=== PATIENT | male | born 1965 | race Hispanic/Latino ===

== ENCOUNTER 2021-06-27 00:16 | Emergency (ER) | payer SELFPAY ==
[2021-06-27] MEDS ORDERED: IBUPROFEN 400 MG TAB PO ONE (06:59)
[2021-06-27] MEDS ORDERED: ACETAMINOPHEN 325 MG TAB PO ONE (06:59)
[2021-06-27] MEDS ORDERED: DOXYCYCLINE 100 MG CAP PO ONE (06:59)
[2021-06-27] MEDS ORDERED: CLINDAMYCIN 300 MG CAP PO ONE (06:59)
--- NOTE | 2021-06-27 07:04 | Emergency Department Report ---
ED General Adult HPI - General Chief complaint: Extremity Problem,Nontraumatic Stated complaint: RT LEG INSECT BITE PUI?: No Time Seen by Provider: 06/27/21 06:59 Source: patient, RN notes reviewed, old records reviewed Mode of arrival: Ambulatory Limitations: No Limitations - History of Present Illness Initial comments: The patient was evaluated in the emergency department for symptoms described in the history of present illness. He/she was evaluated in the context of the global COVID-19 pandemic, which necessitated consideration that the patient might be at risk for infection with the virus that causes COVID-19. Institutional protocols and algorithms that pertain to the evaluation of patients at risk for COVID-19 are in a state of rapid change based on information released by regulatory bodies including the CDC and federal and state organizations. These policies and algorithms were followed during the patient's care in the emergency department. Please note that these policies, procedures and recommendations changed on a rapid basis. Patient is a 55-year-old gentleman, who denies significant past medical history. He is not known to myself. He presents to the ER today with complaint of nontraumatic right lower extremity redness and pain, after insect bite a few days ago. He thinks he was bit by a tick, but he is not certain. He was seen at [facility] a few days ago, reports that he was given an IV, but does not know if he received IV antibiotics, and has paperwork that indicates that he was discharged with prescriptions for Toradol and doxycycline. However, he reports that he does not have his prescriptions, and he has not taken antibiotics. He currently denies headache, neck pain, chest pain, abdominal pain, shortness of breath, vomiting diarrhea. He does endorse some body aches, and he does endorse loss of taste and smell. His pain is throbbing, and increases with palpation and decreases with rest. -: Gradual, days(s) Location: right, lower extremity Quality: aching Consistency: constant Improves with: rest Worsens with: movement - Related Data Previous Rx's Medication Instructions Recorded Last Taken Type Clindamycin [Clindamycin CAP] 300 mg PO Q6H 10 Days #39 capsule 06/27/21 Unknown Rx Doxycycline Hyclate 100 mg PO BID 10 Days #19 tablet. 06/27/21 Unknown Rx Allergies Allergy/AdvReac Type Severity Reaction Status Date / Time No Known Allergies Allergy Unverified 06/27/21 01:35 ED Review of Systems ROS: Stated complaint: RT LEG INSECT BITE Other details as noted in HPI Constitutional: denies: fever Eyes: denies: eye discharge ENT: denies: epistaxis Respiratory: denies: cough Cardiovascular: denies: chest pain Gastrointestinal: denies: abdominal pain Musculoskeletal: myalgia Skin: rash, lesions Neurological: denies: weakness Hematological/Lymphatic: denies: easy bleeding ED Past Medical Hx - Past Medical History Previous Medical History?: No - Surgical History Past Surgical History?: No - Medications Home Medications: Home Medications Medication Instructions Recorded Confirmed Last Taken Type Clindamycin [Clindamycin CAP] 300 mg PO Q6H 10 Days #39 capsule 06/27/21 Unknown Rx Doxycycline Hyclate 100 mg PO BID 10 Days #19 tablet. 06/27/21 Unknown Rx ED Physical Exam - General Limitations: No Limitations General appearance: alert, in no apparent distress - Head Head exam: Present: atraumatic, normocephalic - Eye Eye exam: Present: normal appearance, EOMI. Absent: nystagmus - ENT ENT exam: Present: normal exam, normal orophraynx, mucous membranes moist, normal external ear exam - Neck Neck exam: Present: normal inspection, full ROM. Absent: tenderness, meningismus - Respiratory Respiratory exam: Present: normal lung sounds bilaterally. Absent: respiratory distress, wheezes, rales, rhonchi, stridor, decreased breath sounds - Cardiovascular Cardiovascular Exam: Present: regular rate, normal rhythm, normal heart sounds. Absent: bradycardia, tachycardia, irregular rhythm, systolic murmur, diastolic murmur, rubs, gallop - GI/Abdominal GI/Abdominal exam: Present: soft. Absent: distended, tenderness, guarding, rebound, rigid, pulsatile mass - Rectal Rectal exam: Present: deferred - Extremities Exam Extremities exam: Present: full ROM, other (2+ pulses noted in the bilateral upper and lower extremities. There is no palpable cord. negative Homans sign. Muscular compartments are soft. The pelvis is stable.). Absent: normal inspection (On the right distal anterior lower extremity, there is erythema, warmth and tenderness. The muscular compartments are soft. There is no palpable cord. Erythema is approximately 12 cm on the anterior distal tibial region.), calf tenderness - Back Exam Back exam: Present: normal inspection. Absent: tenderness, CVA tenderness (R), CVA tenderness (L), paraspinal tenderness, vertebral tenderness - Neurological Exam Neurological exam: Present: alert, oriented X3, normal gait, other (No facial droop. Tongue midline. Extraocular movements intact bilaterally. Facial sensation intact to light touch in V1, V2, V3 distribution bilaterally. 5 and a 5 strength in 4 extremities. Sensation intact to light touch in 4 extremities.). Absent: motor sensory deficit - Psychiatric Psychiatric exam: Present: normal affect, normal mood - Skin Skin exam: Present: warm, urticaria. Absent: rash ED Course Vital Signs 06/27/21 06/27/21 01:36 05:05 Temperature 98.3 F 97.9 F Pulse Rate 96 H 88 Respiratory 16 16 Rate Blood Pressure 137/78 Blood Pressure 130/84 [Right] O2 Sat by Pulse 97 96 Oximetry - Reevaluation(s) Reevaluation #1: 06/27/21 07:07 Cellulitis/skin lesions not suggestive of erythema migrans, bull's-eye/target sign, would not send Lyme serology at this time. Defer to outpatient primary care. ED Medical Decision Making - Lab Data Vital Signs 06/27/21 06/27/21 01:36 05:05 Temperature 98.3 F 97.9 F Pulse Rate 96 H 88 Respiratory 16 16 Rate Blood Pressure 137/78 Blood Pressure 130/84 [Right] O2 Sat by Pulse 97 96 Oximetry - Medical Decision Making Differential diagnosis, including but not limited to: Cellulitis, insect bite Assessment and plan: 55-year-old gentleman, who was afebrile, with reassuring vital signs, ambulates with a steady gait, is neurovascularly intact, with evidence of right lower extremity cellulitis, without tense compartments, loss of pulses, or neurovascular compromise. He has not been able to take any antibiotics. He will be started/continued on doxycycline, and we will also add on clindamycin. Discussed elevation, warm compresses, close outpatient follow-up. Have also m arcated borders of erythema with a skin marker. Patient also given a good Rx/affordable prescription card, and I extensively instructed him on how he may use this to obtain his prescriptions affordably. We will also refer him to local outpatient primary care and/or wound care. Patient endorsed understanding. Critical care attestation.: If time is entered above; I have spent that time in minutes in the direct care of this critically ill patient, excluding procedure time. ED Disposition Clinical Impression: Cellulitis of right lower leg Disposition: 01 HOME / SELF CARE / HOMELESS Is pt being admited?: No Condition: Good Instructions: Cellulitis, Adult Additional Instructions: Please take the antibiotics as prescribed and directed. Recommend that patient elevate the leg frequently and often, and use warm compresses as often as as needed. Patient may take Tylenol/acetaminophen as needed for physical pain, 650 mg by mouth, every 4-6 hours as needed for physical pain, alternating with ib uprofen, 600 mg by mouth, [id number], every 6 hours with food, as needed for pain. Please follow-up with a primary care physician within the next 5 to 7 days for repeat wound check and evaluation. Please return to the emergency room right away with new pain, worsened pain, migration of pain, projectile vomiting, change in mental status, confusion, worsening redness, pus or streaking, or any new, worsened or different symptoms not present on the initial ER evaluation. Referrals: SEAN HARVEY MD [Staff Physician] - 3-5 Days [facility] [Provider Group] - 3-5 Days [facility] [Outside] - 3-5 Days Forms: Work/School Release Form(ED)
[2021-06-27 07:27] VITALS: BP 132/82
== END 2021-06-27 07:42 | disposition home or self-care (01) ==
LOC: ED 00:16
DX: L03.115 Cellulitis of right lower limb (principal); Z79.899 Other long term (current) drug therapy